=== PATIENT | female | born 1950 | race Caucasian/White ===

== ENCOUNTER → 2024-01-04 13:52 | Outpatient (REF) | payer MEDICARE, SELFPAY | LOC: WDC 13:52 | PROVIDERS: ATTENDING PHYSICIAN Surgery; FAMILY PHYSICIAN Family Medicine | DX: R92.2 Inconclusive mammogram (principal) | CPT/HCPCS: 76641 ==

== ENCOUNTER → 2024-01-18 10:13 | Outpatient (REF) | payer MEDICARE, SELFPAY | LOC: WDC 10:13 | PROVIDERS: ATTENDING PHYSICIAN Surgery; FAMILY PHYSICIAN Family Medicine | DX: R92.8 Other abnormal and inconclusive findings on diagnostic imaging of breast (principal) | CPT/HCPCS: 77061; 77065 ==

== ENCOUNTER → 2024-03-14 14:46 | Outpatient (REF) | payer MEDICARE, SELFPAY | LOC: HWRAD 14:46 | PROVIDERS: ATTENDING PHYSICIAN Obstetrics & Gynecology; FAMILY PHYSICIAN Family Medicine | DX: R93.5 Abnormal findings on diagnostic imaging of other abdominal regions, including retroperitoneum (principal) | CPT/HCPCS: 76830; 76856 ==

== ENCOUNTER → 2024-03-26 12:43 | Outpatient (REF) | payer MEDICARE, SELFPAY | LOC: HWRAD 12:43 | PROVIDERS: ATTENDING PHYSICIAN Family Medicine | DX: E03.9 Hypothyroidism, unspecified (principal); I10 Essential (primary) hypertension; Z85.72 Personal history of non-Hodgkin lymphomas; Z00.01 Encounter for general adult medical examination with abnormal findings; Z91.81 History of falling; Z13.820 Encounter for screening for osteoporosis; Z78.0 Asymptomatic menopausal state; M85.89 Other specified disorders of bone density and structure, multiple sites | CPT/HCPCS: 77080 ==

== ENCOUNTER → 2024-08-15 13:58 | Outpatient (REF) | payer MEDICARE, SELFPAY | LOC: WDC 13:58 | PROVIDERS: ATTENDING PHYSICIAN Obstetrics & Gynecology; FAMILY PHYSICIAN Family Medicine | DX: Z12.31 Encounter for screening mammogram for malignant neoplasm of breast (principal); R92.8 Other abnormal and inconclusive findings on diagnostic imaging of breast | CPT/HCPCS: 76642; 77063; 77067 ==

== ENCOUNTER → 2025-02-21 13:54 | Outpatient (REF) | payer MEDICARE, SELFPAY | LOC: WDC 13:54 | PROVIDERS: ATTENDING PHYSICIAN Obstetrics & Gynecology; FAMILY PHYSICIAN Family Medicine | DX: R92.8 Other abnormal and inconclusive findings on diagnostic imaging of breast (principal) | CPT/HCPCS: 76642 ==

== ENCOUNTER 2025-03-13 11:55 | Outpatient (RCR) | payer MEDICARE, SELFPAY | END 2025-03-13 23:59 | disposition home or self-care (01) | LOC: RPT 11:55 | PROVIDERS: ATTENDING PHYSICIAN Family Medicine | DX: R41.89 Other symptoms and signs involving cognitive functions and awareness (principal); Z73.6 Limitation of activities due to disability; M62.81 Muscle weakness (generalized); R42 Dizziness and giddiness; R26.2 Difficulty in walking, not elsewhere classified; M81.0 Age-related osteoporosis without current pathological fracture; R29.6 Repeated falls; Z85.71 Personal history of Hodgkin lymphoma; Z92.21 Personal history of antineoplastic chemotherapy | CPT/HCPCS: 97110; 97112; 97163 ==

== ENCOUNTER 2025-04-15 11:55 | Outpatient (RCR) | payer MEDICARE, SELFPAY | END 2025-04-15 23:59 | disposition home or self-care (01) | LOC: RPT 11:55 | PROVIDERS: ATTENDING PHYSICIAN Family Medicine | DX: R41.89 Other symptoms and signs involving cognitive functions and awareness (principal); Z73.6 Limitation of activities due to disability; M62.81 Muscle weakness (generalized); R42 Dizziness and giddiness; R26.2 Difficulty in walking, not elsewhere classified; M81.0 Age-related osteoporosis without current pathological fracture; Z85.71 Personal history of Hodgkin lymphoma; Z92.21 Personal history of antineoplastic chemotherapy; R29.6 Repeated falls | CPT/HCPCS: 97110; 97112 ==

== ENCOUNTER 2025-05-15 12:00 | Outpatient (RCR) | payer MEDICARE, SELFPAY | END 2025-05-15 23:59 | disposition home or self-care (01) | LOC: RPT 12:00 | PROVIDERS: ATTENDING PHYSICIAN Family Medicine | DX: R29.6 Repeated falls (principal); R41.89 Other symptoms and signs involving cognitive functions and awareness; Z73.6 Limitation of activities due to disability; M62.81 Muscle weakness (generalized); R42 Dizziness and giddiness; M81.0 Age-related osteoporosis without current pathological fracture; Z85.71 Personal history of Hodgkin lymphoma; Z92.21 Personal history of antineoplastic chemotherapy; R26.2 Difficulty in walking, not elsewhere classified | CPT/HCPCS: 97110; 97112 ==

== ENCOUNTER 2025-06-17 12:09 | Outpatient (RCR) | payer MEDICARE, SELFPAY | END 2025-06-17 23:59 | disposition home or self-care (01) | LOC: RPT 12:09 | PROVIDERS: ATTENDING PHYSICIAN Family Medicine | DX: R41.89 Other symptoms and signs involving cognitive functions and awareness (principal); Z73.6 Limitation of activities due to disability; M62.81 Muscle weakness (generalized); R42 Dizziness and giddiness; R26.2 Difficulty in walking, not elsewhere classified; M81.0 Age-related osteoporosis without current pathological fracture; Z85.71 Personal history of Hodgkin lymphoma; Z92.21 Personal history of antineoplastic chemotherapy; R29.6 Repeated falls | CPT/HCPCS: 97110; 97112 ==

== ENCOUNTER 2025-06-19 11:55 | Outpatient (RCR) | payer MEDICARE, SELFPAY | END 2025-06-20 06:58 | disposition home or self-care (01) | LOC: RPT 11:55 | PROVIDERS: ATTENDING PHYSICIAN Family Medicine | DX: R29.6 Repeated falls (principal); Z73.6 Limitation of activities due to disability | CPT/HCPCS: 97110; 97112 ==